=== PATIENT | male | born 1965 | race Caucasian/White ===

== ENCOUNTER 2020-08-12 14:34 | Outpatient (CLI) | payer SELFPAY | END 2020-08-12 14:35 | disposition critical access hospital (66) | LOC: EMS 14:34 | PROVIDERS: ATTEND Surgery | DX: R40.4 Transient alteration of awareness (principal); R06.00 Dyspnea, unspecified | CPT/HCPCS: A0425; A0433 ==

== ENCOUNTER 2020-08-12 14:46 | Inpatient (IN) | payer SELFPAY ==
[2020-08-12 15:09] LABS: BASOPHILS % (AUTO) 0.2 %; HGB - HEMOGLOBIN 13.9 g/dL (14.0-18.0); LYMPHOCYTES # (AUTO) 1.2 10^3/uL (1.5-3.5); LYMPHOCYTES % (AUTO) 10.6 %; MEAN CORPUSCULAR HEMOGLOBIN 29.3 pg (27.0-31.0); MEAN CORPUSCULAR HGB CONC 30.4 g/dL (32.0-36.0); MEAN CORPUSCULAR VOLUME 96.4 fL (80.0-94.0); MEAN PLATELET VOLUME 10.2 fL (7.4-11.4); MONOCYTES # (AUTO) 0.7 10^3/uL (0.0-1.0); MONOCYTES % (AUTO) 6.3 %; NEUTROPHILS # (AUTO) 8.7 10^3/uL (1.5-6.6); NEUTROPHILS % (AUTO) 78.9 %; PLT - PLATELET COUNT 243 10^3/uL (130-450); RED BLOOD COUNT 4.74 10^6/uL (4.70-6.10); RED CELL DISTRIBUTION WIDTH 14.5 % (12.0-15.0)
--- NOTE | 2020-08-12 15:10 | ED Physician Documentation ---
History of Present Illness - Stated complaint Stated Complaint: CPR - History obtained from History obtained from: EMS - History of Present Illness Timing: Today - Additonal information Additional information: 55-year-old male tested positive for Covid approximately 5 days ago. Started having difficulty breathing over the past 2 to 3 days. Worsening difficulty breathing today. EMS was called, patient apparently had O2 sats in the 40s when EMS arrived. They were unable to bring his oxygen saturation up with a nonrebreather. The patient apparently coded for a few seconds to minutes, sounds like it was very brief. Given epinephrine and had ROSC. Patient was brought in for further evaluation. Intubated in the field. No further medical history is available. Unknown medications he takes if any were anything about his past medical history. Review of Systems Unable to obtain: Intubated PD PAST MEDICAL HISTORY - Past Medical History Other Past Medical History: unknown - Past Surgical History Other past surgical history: unknown - Living Situation Living Arrangement: reports: At home PD ED PE NORMAL - Vitals Vital signs reviewed: Yes - General General: Other (intubated, sedated) - HEENT HEENT: Moist mucous membranes - Cardiac Cardiac: Other (tachycardic) - Respiratory Respiratory: Other (crackles and diminished BS bilaterally.) - Abdomen Abdomen: Other (mild distention) - Derm Derm: Other (cool, moist) - Extremities Extremities: No edema - Neuro Neuro: Other (unresponsive) Results - Vitals Vitals: Vital Signs - 24 hr 08/12/20 08/12/20 08/12/20 14:45 15:10 15:25 Temperature 39.9 C H Heart Rate 130 H 135 H 125 H Respiratory 36 H 24 Rate Blood Pressure 203/118 H 158/106 H 108/77 O2 Saturation 60 L 62 L 08/12/20 08/12/20 08/12/20 15:26 15:30 15:32 Temperature Heart Rate 130 H 130 H Respiratory 24 24 Rate Blood Pressure 102/70 102/76 O2 Saturation 64 L 65 L 65 L Oxygen O2 Source Mechanical ventilator - EKG (time done) 1540 Rate: Rate (enter#) (115) Rhythm: Sinus tachycardia Mission: Normal Intervals: Normal SC QRS: Normal Ischemia: Normal ST segments - Labs Labs: Laboratory Tests 08/12/20 08/12/20 08/12/20 15:00 15:00 15:00 WBC 11.0 H RBC 4.74 Hgb 13.9 L Hct 45.7 MCV 96.4 H MCH 29.3 MCHC 30.4 L RDW 14.5 Plt Count 243 MPV 10.2 Neut # (Auto) 8.7 H Lymph # (Auto) 1.2 L [place] # (Auto) 0.7 Eos # (Auto) 0.0 Baso # (Auto) 0.0 Absolute Nucleated RBC 0.02 Nucleated RBC % 0.2 D-Dimer Bld Gas Analysis Time 1517 Sample Site RIGHT RADIAL ABG pH 7.18 L* ABG pCO2 60 H* ABG pO2 38 L* ABG HCO3 21.6 L ABG Total CO2 23.5 ABG O2 Saturation 61 L* ABG Base Excess -7.5 L Ander Test POSITIVE Respiration Rate 24 O2 Delivery Device VENTILATOR Vent Mode ASSIST/CONTROL FiO2 1.00 Tidal Volume 500 PEEP 5 Sodium 137 Potassium 5.1 H Chloride 98 L Carbon Dioxide 23 Anion Gap 16.0 H BUN 37 H Creatinine 2.5 H Estimated GFR (MDRD) 27 L Glucose 196 H Calcium 7.4 L Total Bilirubin 0.8 AST 2276 H ALT 1369 H Alkaline Phosphatase 70 Total Protein 6.7 Albumin 2.8 L Globulin 3.9 Albumin/Globulin Ratio 0.7 L 08/12/20 15:00 WBC RBC Hgb Hct MCV MCH MCHC RDW Plt Count MPV Neut # (Auto) Lymph # (Auto) [place] # (Auto) Eos # (Auto) Baso # (Auto) Absolute Nucleated RBC Nucleated RBC % D-Dimer > 1050.0 H Bld Gas Analysis Time Sample Site ABG pH ABG pCO2 ABG pO2 ABG HCO3 ABG Total CO2 ABG O2 Saturation ABG Base Excess Ander Test Respiration Rate O2 Delivery Device Vent Mode FiO2 Tidal Volume PEEP Sodium Potassium Chloride Carbon Dioxide Anion Gap BUN Creatinine Estimated GFR (MDRD) Glucose Calcium Total Bilirubin AST ALT Alkaline Phosphatase Total Protein Albumin Globulin Albumin/Globulin Ratio - Rads (name of study) cxr Radiology: Prelim report reviewed, EMP read contemporaneously, See rad report (E xtensive patchy airspace opacity bilaterally. Findings in keeping with COVID- 19.) PD MEDICAL DECISION MAKING - ED course Complexity details: reviewed results, re-evaluated patient, considered differential, d/w communication consultant ED course: 55-year-old male with COVID-19. Respiratory failure. Liver failure, renal failure, multisystem organ failure. Maintained on a ventilator with increasing PEEP. Given dexamethasone 6 mg IV. Discussed the case with Dr. Woodard, hospitalist who accepts for ICU admission. Also discussed the case with Dr. Smith, account technician at [facility] in [place]. He recommends several things, the first being increase PEEP, he states most of these patients do well around 12-14, can go up as high as 18. He also recommends obtaining the D-dimer and giving dexamethasone 6 mg IV daily. If the D-dimer is low, anticoagulation at 0.5 mix per kg divided twice daily. Recommends consideration to CT angiogram, echocardiogram for possible PE. Recommends prone positioning if this can be done in the ICU. Also recommends remdesivir if no liver or kidney failure. Discussed with Yong Delaney CRNA who will see the patient in the ICU to assist with proning as well as central line access. Patient has a poor prognosis at the time of admission Central line was not placed in the emergency department due to the small room the patient was in and will be easier to be placed in the ICU as the ED room is not large enough for the ventilator and ultrasound. 2 peripheral lines used in the ED. - Critical Care Time(min): 60 Time Includes: Direct patient care, Review records, Reassess patient, Document care, Coordinate care, Medical consult, See progress note Data interpretation: See progress note Procedures included in critical care time: See progress note Procedures excluded from critical care time: See progress note Departure - Departure Disposition: 66 [facility] DC/Xfer Clinical Impression: COVID-19 Respiratory failure Qualifiers: Chronicity: acute Respiratory failure complication: hypoxia and hypercapnia Qualified Code(s): J96.01 - Acute respiratory failure with hypoxia Condition: Critical Discharge Date/Time: 08/12/20 16:47
[2020-08-12 15:22] LABS: ABG BASE EXCESS -7.5 mmol/L (-2.0-3.0); ABG HCO3 21.6 mmol/L (22.0-26.0); ABG TCO2 23.5 MMOL/L (21.0-29.0); ALLEN TEST POSITIVE
[2020-08-12 15:24] LABS: ALBUMIN 2.8 g/dL (3.2-5.5); ALBUMIN/GLOBULIN RATIO 0.7 (1.0-2.2); BILIRUBIN,TOTAL 0.8 mg/dL (0.2-1.0); CALCIUM 7.4 mg/dL (8.5-10.3); CREATININE 2.5 mg/dL (0.6-1.2); TOTAL PROTEIN 6.7 g/dL (6.7-8.2)
[2020-08-12 15:26] LABS: ABG PCO2 60 mmHg (34-45); ABG PH 7.18 (7.35-7.45); ABG PO2 38 mmHg (80-100)
[2020-08-12 15:27] LABS: ABG OXYGEN SATURATION 61 % (94-98)
[2020-08-12] MEDS ORDERED: DEXAMETHASONE 10 MG/ML VIAL IVP STA (15:32)
[2020-08-12] MEDS ORDERED: ONDANSETRON 4 MG/2 ML VIAL IVP PRN (15:34)
[2020-08-12] MEDS ORDERED: ALBUTEROL NEB 2.5 MG/3 ML INH PRN (15:34)
[2020-08-12] MEDS ORDERED: MORPHINE 2 MG/ML CARPUJECT IVP PRN (15:34)
[2020-08-12] MEDS ORDERED: [UNRECOGNIZED DRUG - OTHER] IV SCH (15:45)
[2020-08-12] MEDS ORDERED: SODIUM CHLORIDE 0.9% IV SCH (15:45)
[2020-08-12] MEDS ORDERED: KETAMINE 500 MG/10 ML VIAL IVP STA (15:49)
[2020-08-12] MEDS ORDERED: SODIUM CHLORIDE 0.9% 1,000 ML IV STA (15:54)
--- NOTE | 2020-08-12 15:57 | XRAY Report ---
PROCEDURE: Chest 1 View X-Ray INDICATIONS: CPR, intubation TECHNIQUE: One view of the chest was acquired. COMPARISON: None. FINDINGS: Surgical changes and devices: Endotracheal tube in the trachea. Enteric tube coursing in the stomach. External defibrillator pads. Lungs and pleura: No pleural effusions or pneumothorax. Extensive patchy airspace opacity bilaterall y. Mediastinum: Mediastinal contours appear normal. Heart size is normal. Bones and chest wall: No suspicious bony lesions. Overlying soft tissues appear unremarkable. IMPRESSION: Tubes and lines project in the expected location. Extensive patchy airspace opacity bilaterally. Findings in keeping with COVID-19 infection. Reviewed by: Raza Ramirez MD on 08/12/2020 2:56 PM [facility] Approved by: Raza Ramirez MD on 08/12/2020 2:56 PM [facility] Station ID: [id number]
[2020-08-12] MEDS ORDERED: PROPOFOL 500 MG/50 ML 0 MG/0 ML VIAL ONE (15:59)
--- NOTE | 2020-08-12 16:06 | HISTORY & PHYSICAL EXAMINATION ---
Chief Complaint - Chief Complaint Chief Complaint: Respiratory arrest History of Present Illness - Admitted From Admitted From:: Home via EMS - History Obtained From Records Reviewed: [facility] History obtained from: Apurva Nicholas, son Dariusz, and Dr. Fine Exam Limitations: Patient is intubated, unconscious - History of Present Illness HPI Comment/Other: He is a 55-year-old obese white male who is been unemployed because of the Covid epidemic. He is an solutions executive cloud sales at [email or web address] and was looking forward to starting work in [employer] soon. He has been staying at home. His stepson describes him as being careful. He started feeling ill July 31. As far as his stepson knows, no one around him is sick. The patient has progressed from flulike illness of fever, myalgias, sore throat, runny nose to lethargy, cough, shortness of breath. On August 04 he went out to go buy a freezer and some tools. He was coughing, having hot flashes and cold flashes. And feeling miserable. On Friday the his and adolfoon went to go get tested since they were starting to feel flulike illnesses and they were Covid positive. By August 08 the patient stated he was "feeling better". Up till then, his family had been urging him to please see a doctor. To go to the urgent care center or the emergency room but the patient did not want to go. He felt like he was on the mend. But he continued to be lethargic, sleepy. Did not have much energy. By Friday he really did not have an appetite and was not eating very much. He was sleeping a lot. He was so miserable last night that he just went to bed early. This morning, the family said that he was still sleeping. He had been having such a rough week of it that they left him alone in bed. This afternoon, they went to go check on him because he still has not gotten out of bed and they noticed that he was having white froth come out of his mouth. He was also unresponsive. No matter how much they shook his shoulder or tried to pull on his arms, he was not responding to them so they called EMS. EMS reports unresponsive man, sats in 40s, almost asystole but responded immediately to oxygen, epinephrine and intubation. He received vec with EMS. Initially he was hypertensive in the emergency room and is now hypotensive on the ventilator with a PEEP of 14. Ketamine given. His initial blood gas shows a pH of 7.18, PCO2 60, PO2 38. Bicarb 21.6. Base excess -7.5. This is on the ventilator with a rate of 24, assist control, 100% FiO2 with a tidal volume of 500 and a PEEP of 5. White cell count is 11,000. Hemoglobin 13.9. I am now placing the patient in the ICU. History is obtained from his stepson Cristopher ([phone]). His fiance does not speak [place]. She does not have designated power of urology teacher. He has 3 children from his first marriage and one lives in [facility]. Meggan is his daughter in [place] ([phone]). Son is Dariusz ([phone]). Dariusz has agreed to be the point of contact for his family to disseminate information to them. He is also to be the designated power of urology teacher for the family. History - Past Medical History Cardiovascular: reports: None Respiratory: reports: Asthma (As far his status son Dariusz notes, the patient does not have a primary care provider. Cristopher also states that he does not remember his stepfather seen a doctor.) Neuro: reports: None Endocrine/Autoimmune: reports: None GI: reports: None : reports: None HEENT: reports: None Psych: reports: None Musculoskeletal: reports: Chronic back pain (Previous history of back surgery) Derm: reports: None Other Past Medical History: unknown - Past Surgical History Other past surgical history: unknown - Family & Social History Family History Comment/Other: He is adopted. So he did not know his natural parents. He did come in contact with 1 brother who lives in [place] and is healthy as far as the adolfoon knows. He has 2 stepbrothers in [place]. He has 2 children from his first marriage and they are healthy. Living arrangement: At home Living Situation: With spouse/s.o. Social History Notes: He is from [place]. He lives in his own home here in [place] with his girlfriend/fianc and her son. He does not smoke Now but he used to in the past. Cannot remember when he stop smoking. It was years ago. The family describes him as a rare alcohol drinker. He is an solutions executive cloud sales. He has no history of cocaine, heroin, LSD, methamphetamines.He does have a child who lives in [place] and another child who lives in [place] from his first marriage. His fiance does not have power of urology teacher. - Substance History Use: Uses substance without health or social issues: NONE Abuse: Recurrent use of substance despite neg consequences: NONE Dependence: Experiences withdrawal or developed tolerances: NONE - POLST Patient has POLST: No POLST Status: Full Code Review of Systems - Other Findings Other Findings: Other than the review of systems and history of present illness from his family, we are unable to obtain other detailed review of systems from the patient Prior Level of Functionality: Completely independent with activities of daily living. He drives a car. Helps around the house. Cooks. He does not use any durable medical equipment. Exam - Vital Signs Reviewed Vital Signs: Yes Vital Signs: Vital Signs x48h Temp Pulse Resp BP Pulse Ox 08/12/20 15:41 125 H 24 93/70 64 L 08/12/20 15:32 130 H 18 102/76 99 08/12/20 15:26 64 L 08/12/20 15:25 125 H 24 108/77 62 L 08/12/20 15:10 39.9 C H 135 H 158/106 H 08/12/20 14:45 130 H 36 H 203/118 H 60 L - Physical Exam General Appearance: positive: Other (He is intubated, has only received vecuronium and ketamine x1. Other than that unresponsive.Short statured, morbidly obese, unshaven) Eyes Bilateral: positive: Other (Pupils are pinpoint, unresponsive, sclera without icterus) ENT: positive: Dry mucous membranes Neck: positive: Other (Neck is very thick, unable to assess for JVD. It appears supple. No masses.) Respiratory: positive: Rales (Diffusely. Intubated, completely vent dependent) Cardiovascular: positive: Regular rate & rhythm, Tachycardia Peripheral Pulses: positive: 0 Abdomen: positive: No distention, Other (Hypoactive bowel sounds, large abdomin al pannus really prohibits from assessing for any organomegaly) Skin: positive: Dry, Pallor, Other (On the left lateral calf, he has a large flat camilla. Brown and at least 10 x 5 cm) Extremities: positive: No pedal edema Neurologic/Psychiatric: positive: Other (Unresponsive to voice or pain. Right now there is no other drugs on board before I give him sedatives. No spontaneous moves. Toes upgoing with Babinski check) Conclusion/Plan - Problem List (1) Respiratory arrest Conclusion/Plan: This was a witnessed arrest in the field. EMS was able to successfully resuscitate him quickly with intubation and 1 dose of epi. No chest com pressions were described. Antecedent event is gradually worsening viral illness and he is Covid positive in the emergency room. At this time we will place him in the ICU. I have contacted anesthesia to place a central line. We will also ask for a art line. (2) Acute respiratory failure Conclusion/Plan: Due to asthma and COVID-19 infection. Will treat underlying illnesses. At this time he is intubated. Tidal volume 500. Assist control. FiO2 100%. Rate 24. PEEP of 5. Dr. Fine from the emergency room did discuss the case with ICU from [facility]. Trying keep the PEEP at 14. Try and prone the patient if you can. Qualifiers: Respiratory failure complication: hypoxia Qualified Code(s): J96.01 - Acute respiratory failure with hypoxia (3) Pneumonia due to COVID-19 virus Conclusion/Plan: Treatment standards have changed since the beginning of the epidemic to now. At this time with the data available To us, I had thought we would be giving him remdesivir. However he does not meet criteria Per pharmacy. We will be giving dexamethasone 6 mg in the ER and Dexamethasone is on a daily basis for 4 more doses. We will monitor D-dimer. Once I get the D-dimer level I will either have him on 0.5 mg/kg twice a day. Or 1 mg/kg twice a day of Lovenox. (4) Acute kidney injury Conclusion/Plan: Not clear if this patient has had prolonged shock at home, or if this is simple dehydration from lack of p.o. intake over the last few days. Plan: Aggressive IV fluids for resuscitation. Repeat labs in the next 6 hours. Check labs daily. Avoid nephrotoxic agents. Check renal ultrasound. (5) Acute hepatic failure Conclusion/Plan: Unclear if this is due to alcohol abuse. Bellanc state that he is not an alcohol abuser. Plan: Acute hepatitis panel Ultrasound of liver Follow labs daily Qualifiers: Hepatic coma status: without hepatic coma Qualified Code(s): K72.00 - Acute and subacute hepatic failure without coma (6) Asthma Conclusion/Plan: This may be his underlying risk factors for Covid pneumonia. He is already getting dexamethasone once a day. We will make sure he gets bronchodilators, short acting, as needed. Qualifiers: Asthma severity: severe (7) Morbid obesity Conclusion/Plan: BMI is 39.5. This with me another independent risk factor for his Covid infection. I will ask nutrition services to see him in consultation to see if we should be starting tube feeds to maintain adequate nutrition status and the patient is critically ill. (8) Hyperkalemia Conclusion/Plan: Once he is completed his steroids, line placements, fluid resuscitation, I will repeat potassium. If still hyperkalemic will give dextrose and IV push insulin - Lab Results Lab results reviewed: Yes Fish Bones: 08/12/20 15:00 08/12/20 15:00 - Diagnostic Imaging Results Diagnostic Imaging Results: positive: Final report reviewed Diagnostic Imaging Results Comments: Extensive patchy airspace opacity bilaterally. Findings in keeping with COVID- 19 infection - EKG Results EKG Interpreted Independently: No Core Measures - Anticipated LOS I expect patient to be DC'd or transferred within 96 hours.: Yes - DVT/VTE - Prophylaxis VTE/DVT Device ordered at admit?: Yes
[2020-08-12] MEDS ORDERED: SODIUM CHLORIDE 0.9% 2,000 ML IV STA (16:44)
[2020-08-12] MEDS: LACTATED RINGERS 1,000 ML IV SCH (17:19)
--- NOTE | 2020-08-12 17:37 | ANESTHESIA PROCEDURE NOTE ---
Anesth Central Line Template - Central Line Central Line Preparation: Unable to obtain consent (emergent), Time out compl eted, Ultrasound used, Sterile prep and drape Central line location: Right IJ Central line type: Triple lumen Central line catheter tip site resides: Superior vena cava (SVC) Central line aftercare: Chlorhexidine disc placed, Secured, Placement confirmed, No pneumothorax, No complications, Bundle checklist complete, Pt tolerated well
--- NOTE | 2020-08-12 18:14 | XRAY Report ---
PROCEDURE: Chest for Line Placement INDICATIONS: New CVC TECHNIQUE: One view of the chest was acquired. COMPARISON: CXR earlier today. FINDINGS: Surgical changes and devices: Endotracheal tube in the mid trachea. Enteric tube coursing into the st omach. Right IJ central venous line with the tip at the cavoatrial junction, new. Lungs and pleura: No pleural effusions or pneumothorax. Extensive bilateral patchy airspace opacity, unchanged. Mediastinum: Mediastinal contours appear normal. Heart size is normal. Bones and chest wall: No suspicious bony lesions. Overlying soft tissues appear unremarkable. IMPRESSION: Right IJ central venous line with the tip at the cavoatrial junction in the expected position. No pne umothorax. Extensive bilateral patchy airspace opacity. Reviewed by: Raza Ramirez MD on 08/12/2020 5:13 PM [facility] Approved by: Raza Ramirez MD on 08/12/2020 5:13 PM [facility] Station ID: [id number]
[2020-08-12] MEDS ORDERED: cefTRIAXone 2 GM in SODIUM CHLORIDE 0.9% MINIBAG 100 ML IV SCH (19:40)
[2020-08-12] MEDS ORDERED: ACETAMINOPHEN 1,000 MG/100 ML 100 ML IV PRN (19:43)
[2020-08-12] MEDS: AZITHROMYCIN INJ 500 MG in SODIUM CHLORIDE 0.9% 250 ML IV SCH (20:10)
[2020-08-12 20:19] LABS: ABG BASE EXCESS -4.9 mmol/L (-2.0-3.0); ABG HCO3 19.8 mmol/L (22.0-26.0); ABG OXYGEN SATURATION 98 % (94-98); ABG PCO2 36 mmHg (34-45); ABG PH 7.36 (7.35-7.45); ABG PO2 127 mmHg (80-100); ABG TCO2 20.8 MMOL/L (21.0-29.0)
[2020-08-12] MEDS ORDERED: ENOXAPARIN 100 MG/ML SYRINGE SUBQ SCH (21:00)
[2020-08-12 22:16] LABS: ALBUMIN 2.6 g/dL (3.2-5.5); ALBUMIN/GLOBULIN RATIO 0.7 (1.0-2.2); BILIRUBIN,TOTAL 0.8 mg/dL (0.2-1.0); CALCIUM 6.6 mg/dL (8.5-10.3); CREATININE 3.2 mg/dL (0.6-1.2); TOTAL PROTEIN 6.2 g/dL (6.7-8.2)
[2020-08-12] MEDS ORDERED: CALCIUM GLUCONATE 2,000 MG in SODIUM CHLORIDE 0.9% 100ML 100 ML IV ONE (22:29)
[2020-08-12] MEDS: SODIUM CHLORIDE FLUSH 0.9% 10 ML SYRINGE IVP SCH (23:11)
[2020-08-12] MEDS: fentaNYL 2,500 MCG in SODIUM CHLORIDE 0.9% 200 ML IV SCH (23:22)
[2020-08-12 23:26] LABS: BILIRUBIN,URINE NEGATIVE (NEGATIVE); GLUCOSE, URINE (UA) NEGATIVE (NEGATIVE); KETONES,URINE (UA) NEGATIVE (NEGATIVE); LEUKOCYTE ESTERASE, URINE NEGATIVE (NEGATIVE); NITRITE,URINE NEGATIVE (NEGATIVE); OCCULT BLOOD,URINE LARGE (NEGATIVE); PROTEIN,URINE >=300 mg/dL (NEGATIVE); UROBILINOGEN,URINE 0.2 (NORMAL) E.U./dL (NORMAL)
[2020-08-12 23:27] LABS: CLARITY,URINE CLEAR (CLEAR)
[2020-08-12 23:36] LABS: BACTERIA,URINE Rare /HPF (None Seen); SQUAMOUS EPITHELIAL CELL,UR NONE SEEN (<= Few)
[2020-08-13] MEDS: LACTATED RINGERS 1,000 ML IV SCH ×3 (03:49→21:21)
[2020-08-13] MEDS: SODIUM CHLORIDE FLUSH 0.9% 10 ML SYRINGE IVP SCH ×3 (03:50→18:24)
[2020-08-13 05:40] LABS: INR 1.5 (0.8-1.2); PT - PROTHROMBIN TIME 16.5 secs (9.9-12.6)
[2020-08-13 05:46] LABS: D-DIMER > 1050.0 ng/mL (200.0-255.0)
[2020-08-13 06:12] LABS: ALBUMIN 2.7 g/dL (3.2-5.5); ALBUMIN/GLOBULIN RATIO 0.7 (1.0-2.2); BILIRUBIN,DIRECT 0.2 mg/dL (0.1-0.5); BILIRUBIN,TOTAL 0.6 mg/dL (0.2-1.0); CALCIUM 7.3 mg/dL (8.5-10.3); CREATININE 4.2 mg/dL (0.6-1.2); MAGNESIUM 2.8 mg/dL (1.7-2.8); PHOSPHORUS 4.5 mg/dL (2.5-4.6); TOTAL PROTEIN 6.5 g/dL (6.7-8.2)
[2020-08-13 06:49] LABS: ABG BASE EXCESS -5.3 mmol/L (-2.0-3.0); ABG HCO3 19.7 mmol/L (22.0-26.0); ABG OXYGEN SATURATION 97 % (94-98); ABG PCO2 37 mmHg (34-45); ABG PH 7.35 (7.35-7.45); ABG PO2 93 mmHg (80-100); ABG TCO2 20.9 MMOL/L (21.0-29.0); ALLEN TEST POSITIVE
[2020-08-13 07:31] LABS: BASOPHILS % (AUTO) 0.2 %; HGB - HEMOGLOBIN 13.2 g/dL (14.0-18.0); LYMPHOCYTES % (AUTO) 7.9 %; MEAN CORPUSCULAR HEMOGLOBIN 29.3 pg (27.0-31.0); MEAN CORPUSCULAR HGB CONC 31.4 g/dL (32.0-36.0); MEAN CORPUSCULAR VOLUME 93.1 fL (80.0-94.0); MEAN PLATELET VOLUME 11.1 fL (7.4-11.4); MONOCYTES # (AUTO) 0.6 10^3/uL (0.0-1.0); MONOCYTES % (AUTO) 4.6 %; NEUTROPHILS # (AUTO) 11.3 10^3/uL (1.5-6.6); PLT - PLATELET COUNT 225 10^3/uL (130-450); RED BLOOD COUNT 4.51 10^6/uL (4.70-6.10); RED CELL DISTRIBUTION WIDTH 14.6 % (12.0-15.0); WHITE BLOOD COUNT 13.2 x10^3/uL (4.8-10.8)
[2020-08-13] MEDS ORDERED: SODIUM CHLORIDE 0.9% MINIBAG 100 ML IV ONE (08:01)
[2020-08-13] MEDS: AZITHROMYCIN INJ 500 MG in SODIUM CHLORIDE 0.9% 250 ML IV SCH (08:46)
[2020-08-13] MEDS: DEXAMETHASONE 4 MG/ML VIAL IVP SCH (08:46)
[2020-08-13] MEDS ORDERED: ALBUTEROL 1 PUFF INH STA (08:54)
--- NOTE | 2020-08-13 09:38 | XRAY Report ---
PROCEDURE: Chest 1 View X-Ray INDICATIONS: FU PNEUMONIA, INTUBATED TECHNIQUE: One view of the chest was acquired. COMPARISON: CXRs 08/12/2020. FINDINGS: Surgical changes and devices: Endotracheal tube in the mid trachea. Enteric tube coursing down the es ophagus. Right IJ central venous line with the tip at the cavoatrial junction. External defibrillator pads. Lungs and pleura: No pleural effusions or pneumothorax. Extensive bilateral airspace opacity is stab le to slightly worsened. Mediastinum: Mediastinal contours appear unchanged. Heart size is partially obscured. Bones and chest wall: No suspicious bony lesions. Overlying soft tissues appear unremarkable. IMPRESSION: 1. Extensive bilateral airspace opacity is stable to slightly worsened. 2. Tubes and lines project in the expected locations. Reviewed by: Raza Ramirez MD on 08/13/2020 8:37 AM [facility] Approved by: Raza Ramirez MD on 08/13/2020 8:37 AM [facility] Station ID: [id number]
[2020-08-13] MEDS: cefTRIAXone 2 GM in SODIUM CHLORIDE 0.9% MINIBAG 100 ML IV SCH (10:05)
--- NOTE | 2020-08-13 10:07 | PROVIDER PROGRESS NOTE ---
Subjective - Prog Note Date Prog Note Date: 08/13/20 Prog Note Time: 10:00 Current Medications - Current Medications Current Medications: Active Medications Generic Name Dose Route Start Last Admin Trade Name Freq PRN Reason Stop Dose Admin Albuterol 2.5 mg 08/12/20 15:34 Albuterol Neb 2.5 Mg/3 Ml INH Q4HR PRN Wheezing Chlorhexidine Gluconate 15 ml 08/13/20 10:00 Chlorhexidine Gluconate 15 Ml Udc PO BID CADY Dexamethasone 6 mg 08/13/20 09:00 08/13/20 08:46 Dexamethasone 4 Mg/Ml Vial IVP 6 mg DAILY CADY Administration Diltiazem HCl 5 mg 08/13/20 09:00 Diltiazem Inj 5 Mg/Ml Vial IVP Q6H CADY Lactated Ringer's 1,000 mls @ 100 mls/hr 08/12/20 16:00 08/13/20 03:49 Lr IV 100 mls/hr .Q10H CADY Administration Norepinephrine Bitartrate 8 mg 250 mls @ 15 mls/hr 08/12/20 17:00 08/13/20 00:30 / Dextrose IV 3 mcg/min .[id number] CADY 5.625 mls/hr Titration Protocol 8 MCG/MIN Azithromycin 500 mg/ Sodium 250 mls @ 250 mls/hr 08/12/20 19:40 08/13/20 08:46 Chloride IV 08/14/20 09:59 250 mls/hr DAILY CADY Administration Acetaminophen 100 mls @ 400 mls/hr 08/12/20 19:43 08/12/20 20:25 Ofirmev IV Infused Q6HR PRN Infusion Pain or Fever > 38C (100.4F) Fentanyl 2,500 mcg/ Sodium 250 mls @ 11.793 mls/hr 08/12/20 21:00 08/12/20 23:22 Chloride IV Not Given .[id number] CADY Protocol 1 MCG/KG/HR Ceftriaxone Sodium 2 gm/ 100 mls @ 200 mls/hr 08/13/20 10:00 Sodium Chloride IV 08/16/20 09:29 DAILY CADY Morphine Sulfate 2 mg 08/12/20 15:34 Morphine 2 Mg/Ml Carpuject IVP Q2HR PRN Pain 8 to 10 Multi-Ingred Cream/Lotion/Oil/Oint 1 applic 08/13/20 09:09 Mineral Oil/Petrolat Ophth Oint EACHEYE PRN PRN Dry Eye Ondansetron HCl 4 mg 08/12/20 15:34 Ondansetron 4 Mg/2 Ml Vial IVP Q6HR PRN Nausea / Vomiting Pantoprazole Sodium 40 mg 08/13/20 10:00 Pantoprazole 40 Mg Vial IVP QDAC CADY Sodium Chloride 10 ml 08/12/20 17:00 08/13/20 08:48 Sodium Chloride Flush 0.9% 10 Ml Syringe IVP 10 ml 0100,0900,1700 CADY Administration Sodium Chloride 10 ml 08/12/20 15:34 Sodium Chloride Flush 0.9% 10 Ml Syringe IVP PRN PRN NEEDED PER PROVIDER ORDERS Objective - Vital Signs/Intake & Output Reviewed Vital Signs: Yes Vital Signs: Vital Signs Temp Pulse Pulse Resp BP BP Pulse Ox 08/13/20 09:45 98 31 H 08/13/20 09:31 100 08/13/20 09:30 97 29 H 08/13/20 09:15 94 24 08/13/20 09:00 94 27 H 08/13/20 08:45 91 33 H 08/13/20 08:30 89 28 H 08/13/20 08:15 93 27 H 08/13/20 08:06 37.5 C 91 26 H 144/105 H 92 08/13/20 08:01 91 27 H 08/13/20 08:00 92 27 H 144/105 H 08/13/20 07:59 92 27 H 08/13/20 07:46 94 31 H 08/13/20 07:45 94 32 H 153/111 H 08/13/20 07:44 90 31 H 08/13/20 07:31 91 25 H 08/13/20 07:30 91 25 H 144/104 H 08/13/20 07:29 90 25 H 08/13/20 07:16 88 24 08/13/20 07:15 90 24 142/104 H 08/13/20 07:14 91 25 H 08/13/20 07:01 90 26 H 08/13/20 07:00 89 27 H 140/107 H 08/13/20 06:59 89 24 08/13/20 06:48 90 24 136/89 H 92 08/13/20 06:46 90 25 H 08/13/20 06:45 90 25 H 138/105 H 08/13/20 06:44 91 26 H 08/13/20 06:31 91 25 H 08/13/20 06:30 91 25 H 148/106 H 08/13/20 06:29 91 26 H 08/13/20 06:16 95 25 H 08/13/20 06:15 93 28 H 146/111 H 08/13/20 06:14 93 28 H 08/13/20 06:01 88 24 Intake & Output: Intake & Output 08/10/20 08/11/20 08/12/20 08/13/20 23:59 23:59 23:59 23:59 Intake Total 2897.313 1159.375 Output Total 980 295 Balance 1917.313 864.375 - Objective General Appearance: positive: Other (unable to assess, patient is intubated and not arousable (RASS -5)) Eyes Bilateral: positive: Normal inspection, PERRL, No lid inflammation, Conjunctivae nml, No scleral icterus ENT: positive: ENT inspection nml. negative: Dry mucous membranes Neck: positive: Nml inspection, Thyroid nml, No JVD, Trachea midline. negative: Thyromegaly, Carotid bruit, Tracheal deviation Respiratory: positive: Other (Patient is intubate, vent settings: Volume control, 100% FiO2, PEEP 14, RR 24. Lung sounds are clear/slightly dim.) Cardiovascular: positive: Regular rate & rhythm, No murmur, No gallop, Other (He occasionally will get tachycardic with turns, stimulation.). negative: JVD present, Systolic murmur, Diastolic murmur, Gallop/S3, Gallop/S4 Peripheral Pulses: 1+ Radial (L), 2+ Radial (R), 2+ Dorsalis pedis (R), 2+ Dorsalis pedis (L), 2+ Posterior tibialis (R), 2+ Posterior tibialis (L) Abdomen: positive: Nml bowel sounds, No distention, Other (unable to assess for tenderness (patient not responsive). No grimacing to palpitation to abdomen.). negative: Bruit Skin: positive: Color nml, No rash, Warm, Dry, Other (All extremities are warm except for his left upper arm and hand. Capillary refill is >3 seconds and is cool to touch. Pulses are palpable and dopplerable.) Extremities: positive: Nml appearance, No pedal edema Neurologic/Psychiatric: positive: Other (unable to assess, patient is vented with RASS -5 to -4. Withdrawls to pain on left arm.) - Lab Results Fish Bones: 08/13/20 05:53 08/13/20 11:48 Other Labs: Lab Results x24hrs 08/13/20 08/13/20 08/13/20 Range/Units 06:40 05:53 05:10 WBC 13.2 H (4.8-10.8) x10^3/uL RBC 4.51 L (4.70-6.10) 10^6/uL Hgb 13.2 L (14.0-18.0) g/dL Hct 42.0 (42.0-52.0) % MCV 93.1 (80.0-94.0) fL MCH 29.3 (27.0-31.0) pg MCHC 31.4 L (32.0-36.0) g/dL RDW 14.6 (12.0-15.0) % Plt Count 225 (130-450) 10^3/uL MPV 11.1 (7.4-11.4) fL Neut # (Auto) 11.3 H (1.5-6.6) 10^3/uL Lymph # (Auto) 1.0 L (1.5-3.5) 10^3/uL [place] # (Auto) 0.6 (0.0-1.0) 10^3/uL Eos # (Auto) 0.0 (0.0-0.7) 10^3/uL Baso # (Auto) 0.0 (0.0-0.1) 10^3/uL Absolute Nucleated RBC 0.02 x10^3/uL Nucleated RBC % 0.2 /100WBC PT 16.5 H (9.9-12.6) secs INR 1.5 H (0.8-1.2) D-Dimer > 1050.0 H (200.0-255.0) ng/mL Bld Gas Analysis Time 0645 Sample Site A-LINE ABG pH 7.35 (7.35-7.45) ABG pCO2 37 (34-45) mmHg ABG pO2 93 (80-100) mmHg ABG HCO3 19.7 L (22.0-26.0) mmol/L ABG Total CO2 20.9 L (21.0-29.0) MMOL/L ABG O2 Saturation 97 (94-98) % ABG Base Excess -5.3 L (-2.0-3.0) mmol/L Ander Test POSITIVE Respiration Rate 24 b/min O2 Delivery Device Vent Mode ASSIST/CONTROL FiO2 10.00 Tidal Volume 500 mL PEEP 14 cmH2O Sodium (135-145) mmol/L Potassium (3.5-5.0) mmol/L Chloride (101-111) mmol/L Carbon Dioxide (21-32) mmol/L Anion Gap (6-13) BUN (6-20) mg/dL Creatinine (0.6-1.2) mg/dL Estimated GFR (MDRD) (>89) Glucose (70-100) mg/dL Calcium (8.5-10.3) mg/dL Phosphorus (2.5-4.6) mg/dL Magnesium (1.7-2.8) mg/dL Total Bilirubin (0.2-1.0) mg/dL Direct Bilirubin (0.1-0.5) mg/dL AST (10-42) IU/L ALT (10-60) IU/L Alkaline Phosphatase (42-121) IU/L Total Protein (6.7-8.2) g/dL Albumin (3.2-5.5) g/dL Globulin (2.1-4.2) g/dL Albumin/Globulin Ratio (1.0-2.2) Urine Color Urine Clarity (CLEAR) Urine pH (5.0-7.5) PH Ur Specific Dubois (1.002-1.030) Urine Protein (NEGATIVE) mg/dL Urine Glucose (UA) (NEGATIVE) mg/dL Urine Ketones (NEGATIVE) mg/dL Urine Occult Blood (NEGATIVE) Urine Nitrite (NEGATIVE) Urine Bilirubin (NEGATIVE) Urine Urobilinogen (NORMAL) E.U./dL Ur Leukocyte Esterase (NEGATIVE) Urine RBC (0-5) /HPF Urine WBC (0-3) /HPF Ur Squamous Epith Cells (<= Few) Urine Bacteria (None Seen) /HPF Urine Casts /LPF Ur Microscopic Review Urine Culture Comments Nasal Screen MRSA (PCR) (NEGATIVE) 08/13/20 08/12/20 08/12/20 Range/Units 05:10 23:10 21:24 WBC (4.8-10.8) x10^3/uL RBC (4.70-6.10) 10^6/uL Hgb (14.0-18.0) g/dL Hct (42.0-52.0) % MCV (80.0-94.0) fL MCH (27.0-31.0) pg MCHC (32.0-36.0) g/dL RDW (12.0-15.0) % Plt Count (130-450) 10^3/uL MPV (7.4-11.4) fL Neut # (Auto) (1.5-6.6) 10^3/uL Lymph # (Auto) (1.5-3.5) 10^3/uL [place] # (Auto) (0.0-1.0) 10^3/uL Eos # (Auto) (0.0-0.7) 10^3/uL Baso # (Auto) (0.0-0.1) 10^3/uL Absolute Nucleated RBC x10^3/uL Nucleated RBC % /100WBC PT (9.9-12.6) secs INR (0.8-1.2) D-Dimer (200.0-255.0) ng/mL Bld Gas Analysis Time Sample Site ABG pH (7.35-7.45) ABG pCO2 (34-45) mmHg ABG pO2 (80-100) mmHg ABG HCO3 (22.0-26.0) mmol/L ABG Total CO2 (21.0-29.0) MMOL/L ABG O2 Saturation (94-98) % ABG Base Excess (-2.0-3.0) mmol/L Ander Test Respiration Rate b/min O2 Delivery Device Vent Mode FiO2 Tidal Volume mL PEEP cmH2O Sodium 140 136 (135-145) mmol/L Potassium 4.7 4.8 (3.5-5.0) mmol/L Chloride 101 101 (101-111) mmol/L Carbon Dioxide 23 20 L (21-32) mmol/L Anion Gap 16.0 H 15.0 H (6-13) BUN 58 H 47 H (6-20) mg/dL Creatinine 4.2 H 3.2 H (0.6-1.2) mg/dL Estimated GFR (MDRD) 15 L 20 L (>89) Glucose 250 H 260 H (70-100) mg/dL Calcium 7.3 L 6.6 L (8.5-10.3) mg/dL Phosphorus 4.5 (2.5-4.6) mg/dL Magnesium 2.8 (1.7-2.8) mg/dL Total Bilirubin 0.6 0.8 (0.2-1.0) mg/dL Direct Bilirubin 0.2 (0.1-0.5) mg/dL AST 4434 H 4833 H (10-42) IU/L ALT 2004 H 2087 H (10-60) IU/L Alkaline Phosphatase 74 70 (42-121) IU/L Total Protein 6.5 L 6.2 L (6.7-8.2) g/dL Albumin 2.7 L 2.6 L (3.2-5.5) g/dL Globulin 3.8 3.6 (2.1-4.2) g/dL Albumin/Globulin Ratio 0.7 L 0.7 L (1.0-2.2) Urine Color YELLOW Urine Clarity CLEAR (CLEAR) Urine pH 5.0 (5.0-7.5) PH Ur Specific Dubois >=1.030 H (1.002-1.030) Urine Protein >=300 H (NEGATIVE) mg/dL Urine Glucose (UA) NEGATIVE (NEGATIVE) mg/dL Urine Ketones NEGATIVE (NEGATIVE) mg/dL Urine Occult Blood LARGE H (NEGATIVE) Urine Nitrite NEGATIVE (NEGATIVE) Urine Bilirubin NEGATIVE (NEGATIVE) Urine Urobilinogen 0.2 (NORMAL) (NORMAL) E.U./dL Ur Leukocyte Esterase NEGATIVE (NEGATIVE) Urine RBC 6-10 H (0-5) /HPF Urine WBC 0-3 (0-3) /HPF Ur Squamous Epith Cells NONE SEEN (<= Few) Urine Bacteria Rare (None Seen) /HPF Urine Casts 3-5 Hyaline Casts /LPF Ur Microscopic Review INDICATED Urine Culture Comments NOT INDICATED Nasal Screen MRSA (PCR) (NEGATIVE) 08/12/20 08/12/20 08/12/20 Range/Units 20:04 17:30 15:00 WBC (4.8-10.8) x10^3/uL RBC (4.70-6.10) 10^6/uL Hgb (14.0-18.0) g/dL Hct (42.0-52.0) % MCV (80.0-94.0) fL MCH (27.0-31.0) pg MCHC (32.0-36.0) g/dL RDW (12.0-15.0) % Plt Count (130-450) 10^3/uL MPV (7.4-11.4) fL Neut # (Auto) (1.5-6.6) 10^3/uL Lymph # (Auto) (1.5-3.5) 10^3/uL [place] # (Auto) (0.0-1.0) 10^3/uL Eos # (Auto) (0.0-0.7) 10^3/uL Baso # (Auto) (0.0-0.1) 10^3/uL Absolute Nucleated RBC x10^3/uL Nucleated RBC % /100WBC PT (9.9-12.6) secs INR (0.8-1.2) D-Dimer > 1050.0 H (200.0-255.0) ng/mL Bld Gas Analysis Time 2003 Sample Site A-LINE ABG pH 7.36 (7.35-7.45) ABG pCO2 36 (34-45) mmHg ABG pO2 127 H (80-100) mmHg ABG HCO3 19.8 L (22.0-26.0) mmol/L ABG Total CO2 20.8 L (21.0-29.0) MMOL/L ABG O2 Saturation 98 (94-98) % ABG Base Excess -4.9 L (-2.0-3.0) mmol/L Ander Test NOT APPLICABLE Respiration Rate 24 b/min O2 Delivery Device VENTILATOR Vent Mode FiO2 100.00 Tidal Volume 500 mL PEEP 14 cmH2O Sodium (135-145) mmol/L Potassium (3.5-5.0) mmol/L Chloride (101-111) mmol/L Carbon Dioxide (21-32) mmol/L Anion Gap (6-13) BUN (6-20) mg/dL Creatinine (0.6-1.2) mg/dL Estimated GFR (MDRD) (>89) Glucose (70-100) mg/dL Calcium (8.5-10.3) mg/dL Phosphorus (2.5-4.6) mg/dL Magnesium (1.7-2.8) mg/dL Total Bilirubin (0.2-1.0) mg/dL Direct Bilirubin (0.1-0.5) mg/dL AST (10-42) IU/L ALT (10-60) IU/L Alkaline Phosphatase (42-121) IU/L Total Protein (6.7-8.2) g/dL Albumin (3.2-5.5) g/dL Globulin (2.1-4.2) g/dL Albumin/Globulin Ratio (1.0-2.2) Urine Color Urine Clarity (CLEAR) Urine pH (5.0-7.5) PH Ur Specific Dubois (1.002-1.030) Urine Protein (NEGATIVE) mg/dL Urine Glucose (UA) (NEGATIVE) mg/dL Urine Ketones (NEGATIVE) mg/dL Urine Occult Blood (NEGATIVE) Urine Nitrite (NEGATIVE) Urine Bilirubin (NEGATIVE) Urine Urobilinogen (NORMAL) E.U./dL Ur Leukocyte Esterase (NEGATIVE) Urine RBC (0-5) /HPF Urine WBC (0-3) /HPF Ur Squamous Epith Cells (<= Few) Urine Bacteria (None Seen) /HPF Urine Casts /LPF Ur Microscopic Review Urine Culture Comments Nasal Screen MRSA (PCR) NEGATIVE (NEGATIVE) 08/12/20 08/12/20 08/12/20 Range/Units 15:00 15:00 15:00 WBC 11.0 H (4.8-10.8) x10^3/uL RBC 4.74 (4.70-6.10) 10^6/uL Hgb 13.9 L (14.0-18.0) g/dL Hct 45.7 (42.0-52.0) % MCV 96.4 H (80.0-94.0) fL MCH 29.3 (27.0-31.0) pg MCHC 30.4 L (32.0-36.0) g/dL RDW 14.5 (12.0-15.0) % Plt Count 243 (130-450) 10^3/uL MPV 10.2 (7.4-11.4) fL Neut # (Auto) 8.7 H (1.5-6.6) 10^3/uL Lymph # (Auto) 1.2 L (1.5-3.5) 10^3/uL [place] # (Auto) 0.7 (0.0-1.0) 10^3/uL Eos # (Auto) 0.0 (0.0-0.7) 10^3/uL Baso # (Auto) 0.0 (0.0-0.1) 10^3/uL Absolute Nucleated RBC 0.02 x10^3/uL Nucleated RBC % 0.2 /100WBC PT (9.9-12.6) secs INR (0.8-1.2) D-Dimer (200.0-255.0) ng/mL Bld Gas Analysis Time 1517 Sample Site RIGHT RADIAL ABG pH 7.18 L* (7.35-7.45) ABG pCO2 60 H* (34-45) mmHg ABG pO2 38 L* (80-100) mmHg ABG HCO3 21.6 L (22.0-26.0) mmol/L ABG Total CO2 23.5 (21.0-29.0) MMOL/L ABG O2 Saturation 61 L* (94-98) % ABG Base Excess -7.5 L (-2.0-3.0) mmol/L Ander Test POSITIVE Respiration Rate 24 b/min O2 Delivery Device VENTILATOR Vent Mode ASSIST/CONTROL FiO2 1.00 Tidal Volume 500 mL PEEP 5 cmH2O Sodium 137 (135-145) mmol/L Potassium 5.1 H (3.5-5.0) mmol/L Chloride 98 L (101-111) mmol/L Carbon Dioxide 23 (21-32) mmol/L Anion Gap 16.0 H (6-13) BUN 37 H (6-20) mg/dL Creatinine 2.5 H (0.6-1.2) mg/dL Estimated GFR (MDRD) 27 L (>89) Glucose 196 H (70-100) mg/dL Calcium 7.4 L (8.5-10.3) mg/dL Phosphorus (2.5-4.6) mg/dL Magnesium (1.7-2.8) mg/dL Total Bilirubin 0.8 (0.2-1.0) mg/dL Direct Bilirubin (0.1-0.5) mg/dL AST 2276 H (10-42) IU/L ALT 1369 H (10-60) IU/L Alkaline Phosphatase 70 (42-121) IU/L Total Protein 6.7 (6.7-8.2) g/dL Albumin 2.8 L (3.2-5.5) g/dL Globulin 3.9 (2.1-4.2) g/dL Albumin/Globulin Ratio 0.7 L (1.0-2.2) Urine Color Urine Clarity (CLEAR) Urine pH (5.0-7.5) PH Ur Specific Dubois (1.002-1.030) Urine Protein (NEGATIVE) mg/dL Urine Glucose (UA) (NEGATIVE) mg/dL Urine Ketones (NEGATIVE) mg/dL Urine Occult Blood (NEGATIVE) Urine Nitrite (NEGATIVE) Urine Bilirubin (NEGATIVE) Urine Urobilinogen (NORMAL) E.U./dL Ur Leukocyte Esterase (NEGATIVE) Urine RBC (0-5) /HPF Urine WBC (0-3) /HPF Ur Squamous Epith Cells (<= Few) Urine Bacteria (None Seen) /HPF Urine Casts /LPF Ur Microscopic Review Urine Culture Comments Nasal Screen MRSA (PCR) (NEGATIVE) - Diagnostic Imaging Diagnostic Imaging Results: positive: Final report reviewed Assessment/Plan - Problem List (1) Respiratory arrest Impression: Conclusion/Plan: Patient was found unconscious at home yesterday, foaming at the mouth by family member. EMS was called and patient was resuscitated and intubated in the field for an O2 saturation in the 40s and bradycardic where 1mg of epi was given with optimal response. Patient was noted by family that he has been feeling ill with flu-like symptoms since July 31. He is Covid positive and was placed in the ICU yesterday for acute respiratory failure management. Arterial and central line placed yesterday. (2) Acute respiratory failure Conclusion/Plan: His respiratory failure is secondary to Covid and asthma. Patient's vent setting this morning was assist control, FIO2 100%, PEEP of 14, tidal volume 500 (based on 8kg/cc). His peak pressure this morning on this vent setting was in the upper 30s to low 40s. With turns and stimulation, his peak pressure would increase to the 50s and will desaturate to the 80s%. PaO2 was 93. Tidal volume was decreased to 425 (6kg/cc). Repeat ABG 4.23/48/143/19.9/98 with peak pressures down to low 20s. This patient has a mix respiratory and metabolic acidosis. Plan: Increase his RR from 24 to 28 and repeat an ABG. Will start him on sedation as the plan is to prone him today. (3) COVID-19 Conclusion/Plan: Based on the most recent COVID-19 pharmacologic recommendations by the CDC, he was started on dexamethasone yesterday. Due to hypercoagulable state from COVID- 19, patient would benefit from anticoagulation. Plan: Continue dexamethasone and start enoxaparin subQ today. If kidney function improves, will start heparin drip tomorrow. (4) Pneumonia due to COVID-19 virus Conclusion/Plan: Based on the most recent COVID-19 pharmacologic recommendations by the CDC, he was started on dexamethasone. He was also started on azithromycin and ceftriaxone for pneumonia. Plan: Continue azithromycin and ceftriaxone today. Will plan on getting chest CT when he is more stable. (5) Acute kidney injury Conclusion/Plan: Patient's BUN and creatinine continues to climb. His creatinine is now 4.2 from 3.5. He is still making urine and currently has no indication for dialysis. Plan: Continue IV maintenance fluid and repeat BMP to trend creatinine. Avoid hypotension and nephrotoxins. (6) Acute hepatic failure Conclusion/Plan: Elevated liver enzymes may likely be due to shock state. His liver enzymes peak ed yesterday and is lower this morning on draw. Plan: Acute hepatitis panel and continue to trend LFTs. (7) Asthma Conclusion/Plan: Continue dexamethasone and scheduled albuterol nebulizer. Albuterol nebulizer treatment as needed. (8) Morbid obesity Conclusion/Plan: His BMI is 39.5--a risk factor for COVID-19. Plan: Will consult nutrition and start tube feed tomorrow. (9) Hyperkalemia Conclusion/Plan: Potassium this morning is down from 5.2 to 4.7. Plan: Will continue to trend BMP and to give insulin if needed. (9) Garcia Agitation Sedation Scale (RASS) score minurs 5, unarousable Conclusion/Plan: He is currently not on any sedation, but has yet to respond to commands or move. Corneals reflex, gag and cough reflex intact. Head CT unable to be done due to hemodynamic and patient instability. He was found unresponsive for an unknown period of time. He may have some degree of anoxic brain injury. Stroke cannot be ruled out without a head CT. Plan: Will get a head CT when patient is hemodynamically stable.
[2020-08-13] MEDS: CHLORHEXIDINE GLUCONATE 15 ML UDC PO SCH ×2 (10:12→21:19)
[2020-08-13] MEDS: SODIUM CHLORIDE FLUSH 0.9% 10 ML SYRINGE IVP PRN (10:16)
[2020-08-13] MEDS: MINERAL OIL/PETROLAT OPHTH OINT EACHEYE PRN ×2 (10:17→21:22)
[2020-08-13] MEDS: diltiaZEM INJ 5 MG/ML VIAL IVP SCH ×3 (10:49→21:20)
[2020-08-13] MEDS ORDERED: ENOXAPARIN 120 MG/0.8 ML SYRINGE SUBQ ONE (10:53)
[2020-08-13] MEDS: PANTOPRAZOLE 40 MG VIAL IVP SCH (11:01)
[2020-08-13] MEDS ORDERED: ALBUTEROL 1 PUFF INH PRN (11:38)
[2020-08-13 11:45] LABS: ABG BASE EXCESS -7.7 mmol/L (-2.0-3.0); ABG HCO3 19.9 mmol/L (22.0-26.0); ABG PCO2 48 mmHg (34-45); ABG PH 7.23 (7.35-7.45); ABG PO2 143 mmHg (80-100); ABG TCO2 21.4 MMOL/L (21.0-29.0)
[2020-08-13 11:46] LABS: ABG OXYGEN SATURATION 98 % (94-98); ALLEN TEST POSITIVE
[2020-08-13] MEDS: INSULIN REGULAR HUMAN 300 UNIT/3 ML VIAL SUBQ SCH ×3 (11:54→23:58)
[2020-08-13 12:07] LABS: CALCIUM 7.1 mg/dL (8.5-10.3); CREATININE 5.3 mg/dL (0.6-1.2)
[2020-08-13 13:32] LABS: ABG HCO3 21.3 mmol/L (22.0-26.0); ABG PCO2 51 mmHg (34-45); ABG PH 7.24 (7.35-7.45); ABG PO2 98 mmHg (80-100)
[2020-08-13 13:33] LABS: ABG BASE EXCESS -6.4 mmol/L (-2.0-3.0); ABG OXYGEN SATURATION 96 % (94-98); ABG TCO2 22.8 MMOL/L (21.0-29.0)
--- NOTE | 2020-08-13 14:26 | PHARMACY PROGRESS NOTE ---
- Best Possible Medication History Admit Date and Time: 08/12/20 1534 Processed by: Pharmacy Medication History completed: Yes Patient Interview: Pt unable to participate Secondary Source(s): Pharmacy records As the person ultimately responsible for medication therapy, providers are able to order a medication from an existing home medication list in [facility] via the "Reconcile Routine" prior to Confirmation of that medication by customer support technician. Such practice is discouraged except when the physician, in their clinical judgment, deems that a medical need exists for a medication without regard to previous use.
[2020-08-13] MEDS: ROCURONIUM 500 MG in SODIUM CHLORIDE 0.9% 100ML 50 ML IV SCH ×2 (14:53→21:37)
[2020-08-13] MEDS: fentaNYL 2,500 MCG in SODIUM CHLORIDE 0.9% 200 ML IV SCH ×2 (14:53→19:56)
[2020-08-13 16:06] LABS: ABG BASE EXCESS -5.3 mmol/L (-2.0-3.0); ABG HCO3 19.7 mmol/L (22.0-26.0); ABG OXYGEN SATURATION 98 % (94-98); ABG PCO2 37 mmHg (34-45); ABG PH 7.35 (7.35-7.45); ABG PO2 146 mmHg (80-100); ABG TCO2 20.9 MMOL/L (21.0-29.0); ALLEN TEST POSITIVE
--- NOTE | 2020-08-13 17:35 | Ultrasound Report ---
PROCEDURE: Abdomen Complete INDICATIONS: new renal failure TECHNIQUE: Real-time scanning was performed of the abdominal and retroperitoneal organs, with image documentatio n. COMPARISON: None. FINDINGS: Exam is limited by patient positioning, body habitus, and acoustic windows. Liver: Liver is normal in size. Increased in echogenicity. Gallbladder: Gallbladder is nondistended. Phrygian cap. No stones or sludge. Bladder wall appears mil dly thickened measuring 4 mm. No pericholecystic fluid. Negative sonographic Barton sign. Biliary ducts: Intrahepatic bile ducts are non-dilated. Extrahepatic bile duct caliber measures 7 m m. Normal is 6-7 mm or less in diameter, or 10 mm or less post-cholecystectomy. Pancreas: Not clearly seen. Spleen: Spleen is normal in size and homogeneous in echotexture. Kidneys: Left kidney is not well seen. Kidneys are normal in size. Right kidney measures 13.2 cm lo ng; left kidney measures 12.9 cm long. No hydronephrosis or nephrolithiasis. No solid masses. Aorta: Visualized aorta is normal in caliber at less than 3 cm. Iliacs: Not visualized. IVC: Intrahepatic inferior vena cava is patent. IMPRESSION: Exam is limited by acoustic windows, body habitus, and positioning. 1. No hydronephrosis. 2. Apparent mild thickening of the gallbladder wall. However the gallbladder is nondistended and ther e is no gallstones seen. 3. Increased echogenicity of the hepatic parenchyma. This is most commonly seen in hepatic steatosis. Other forms of hepatocellular disease could have a similar appearance. Reviewed by: Raza Rmairez MD on 08/13/2020 4:34 PM [facility] Approved by: Raza Ramirez MD on 08/13/2020 4:34 PM [place] Station ID: [id number]
--- NOTE | 2020-08-13 17:37 | Ultrasound Report ---
PROCEDURE: Bladder INDICATIONS: renal failure TECHNIQUE: Targeted exam of the urinary bladder. COMPARISON: Same day abdominal ultrasound. FINDINGS: Urinary bladder is decompressed with Barker catheter. Evaluation is limited. No obvious free fluid. IMPRESSION: Decompressed urinary bladder with Barker catheter. Reviewed by: Raza Ramirez MD on 08/13/2020 4:35 PM [facility] Approved by: Raza Ramirez MD on 08/13/2020 4:35 PM [facility] Station ID: [id number]
[2020-08-13] MEDS ORDERED: INSULIN GLARGINE 300 UNIT/3 ML PEN SUBQ SCH (21:00)
[2020-08-14] MEDS: SODIUM CHLORIDE FLUSH 0.9% 10 ML SYRINGE IVP SCH ×2 (00:02→08:41)
[2020-08-14] MEDS: diltiaZEM INJ 5 MG/ML VIAL IVP SCH ×2 (03:22→08:40)
[2020-08-14 05:38] LABS: BASOPHILS % (AUTO) 0.2 %; HGB - HEMOGLOBIN 12.9 g/dL (14.0-18.0); LYMPHOCYTES % (AUTO) 3.7 %; MEAN CORPUSCULAR HEMOGLOBIN 29.6 pg (27.0-31.0); MEAN CORPUSCULAR HGB CONC 31.9 g/dL (32.0-36.0); MEAN CORPUSCULAR VOLUME 92.7 fL (80.0-94.0); MEAN PLATELET VOLUME 11.3 fL (7.4-11.4); MONOCYTES % (AUTO) 4.3 %; NEUTROPHILS % (AUTO) 88.8 %; PLT - PLATELET COUNT 244 10^3/uL (130-450); RED BLOOD COUNT 4.36 10^6/uL (4.70-6.10); RED CELL DISTRIBUTION WIDTH 14.4 % (12.0-15.0); WHITE BLOOD COUNT 17.4 x10^3/uL (4.8-10.8)
[2020-08-14 05:42] LABS: ABG PCO2 47 mmHg (34-45); ABG PH 7.27 (7.35-7.45); ABG PO2 121 mmHg (80-100); ABG TCO2 22.5 MMOL/L (21.0-29.0)
[2020-08-14 05:44] LABS: ABNORMAL LYMPHS % (MANUAL) 0 %
[2020-08-14 05:50] LABS: ABG OXYGEN SATURATION 98 % (94-98)
[2020-08-14 05:56] LABS: ALBUMIN 2.6 g/dL (3.2-5.5); ALBUMIN/GLOBULIN RATIO 0.7 (1.0-2.2); BILIRUBIN,TOTAL 0.5 mg/dL (0.2-1.0); CALCIUM 7.2 mg/dL (8.5-10.3); CREATININE 6.5 mg/dL (0.6-1.2); MAGNESIUM 3.2 mg/dL (1.7-2.8); PHOSPHORUS 6.3 mg/dL (2.5-4.6); TOTAL PROTEIN 6.2 g/dL (6.7-8.2)
[2020-08-14] MEDS ORDERED: INSULIN REGULAR HUMAN 300 UNIT/3 ML VIAL SUBQ SCH (06:00)
[2020-08-14 06:13] LABS: BAND NEUTROPHILS % (MANUAL) 7 %; DIFFERENTIAL COMMENT MANUAL DIFFERENTIAL; LYMPHOCYTES # (MANUAL) 0.3 10^3/uL (1.5-3.5); LYMPHOCYTES % (MANUAL) 2 %; MONOCYTES # (MANUAL) 0.7 10^3/uL (0.0-1.0); PLATELET ESTIMATE, MANUAL NORMAL (130-450,000) (NORMAL); PLATELET MORPHOLOGY NORMAL APPEARANCE (NORMAL); RBC MORPHOLOGY (MULTIPLE) NORMAL APPEARANCE (NORMAL)
[2020-08-14] MEDS: INSULIN REGULAR HUMAN 300 UNIT/3 ML VIAL SUBQ SCH (06:22)
[2020-08-14] MEDS: PANTOPRAZOLE 40 MG VIAL IVP SCH (06:22)
[2020-08-14] MEDS: SODIUM CHLORIDE FLUSH 0.9% 10 ML SYRINGE IVP PRN (06:33)
[2020-08-14] MEDS ORDERED: INSULIN REGULAR HUMAN 300 UNIT/3 ML VIAL IVP ONE (07:01)
[2020-08-14] MEDS: LACTATED RINGERS 1,000 ML IV SCH (08:30)
[2020-08-14] MEDS: AZITHROMYCIN INJ 500 MG in SODIUM CHLORIDE 0.9% 250 ML IV SCH (08:39)
[2020-08-14] MEDS: DEXAMETHASONE 4 MG/ML VIAL IVP SCH (08:39)
--- NOTE | 2020-08-14 09:11 | DISCHARGE SUMMARY ---
Discharge Summary Admit Date: 08/12/20 Discharge Date: 08/14/20 Discharging Provider: Roula Woodard MD Primary Care Provider: none Code Status: Attempt Resuscitation Condition at Discharge: Critical Discharge Disposition: 02 Transfer Acute Care Hosp - DIAGNOSES Discharge Diagnoses with Status of Each Condition: 1. Status post respiratory arrest 2. Acute respiratory failure with hypoxemia 3. Pneumonia due to COVID-19 virus 4. Acute kidney failure 5. Acute hepatic failure 6. History of asthma 7. Morbid obesity 8. Hyperkalemia - HPI History of Present Illness: He is a 55-year-old obese white male who is been unemployed because of the Covid epidemic. He is an client service executive at [employer] and was looking forward to starting work in [place] soon. He has been staying at home. His stepson describes him as being careful. He started feeling ill July 31. As far as his stepson knows, no one around him is sick. The patient has progressed from flulike illness of fever, myalgias, sore throat, runny nose to lethargy, cough, shortness of breath. On August 04 he went out to go buy a freezer and some tools. He was coughing, having hot flashes and cold flashes. And feeling miserable. On Friday the his and stepson went to go get tested since they were starting to feel flulike illnesses and they were Covid positive. By August 08 the patient stated he was "feeling better". Up till then, his family had been urging him to please see a doctor. To go to the urgent care center or the emergency room but the patient did not want to go. He felt like he was on the mend. But he continued to be lethargic, sleepy. Did not have much energy. By Friday the he really did not have an appetite and was not eating very much. He was sleeping a lot. He was so miserable last night that he just went to bed early. This morning, the family said that he was still sleeping. He had been having such a rough week of it that they left him alone in bed. This afternoon, they went to go check on him because he still has not gotten out of bed and they noticed that he was having white froth come out of his mouth. He was also unresponsive. No matter how much they shook his shoulder or tried to pull on his arms, he was not responding to them so they called EMS. EMS reports unresponsive man, sats in 40s, almost asystole in that pulse was intermittent on leads but responded immediately to oxygen, epinephrine and intubation. BP came up to 200s at first. O2 sats improved to high 80s. He received vec with EMS. Initially he was hypertensive in the emergency room and is now hypotensive on the ventilator with a PEEP of 14. Ketamine given. His initial blood gas shows a pH of 7.18, PCO2 60, PO2 38. Bicarb 21.6. Base excess -7.5. This is on the ventilator with a rate of 24, assist control, 100% FiO2 with a tidal volume of 500 and a PEEP of 5. White cell count is 11,000. Hemoglobin 13.9. I am now placing the patient in the ICU. History is obtained from his stepson Cristopher ([phone]). His fiance does not speak [place]. She does not have designated power of [place] attorney. He has 3 children from his first marriage and one lives in [facility]. Meggan is his daughter in [place] ([phone]). Son is Dariusz ([phone]). Dariusz has agreed to be the point of contact for his family to disseminate information to them. He is also to be the designated power of [place] attorney for the family. History - Past Medical History Cardiovascular: reports: None Respiratory: reports: Asthma (As far his status son Dariusz notes, the patient does not have a primary care provider. Cristopher also states that he does not remember his stepfather seen a doctor.) Neuro: reports: None Endocrine/Autoimmune: reports: None GI: reports: None : reports: None HEENT: reports: None Psych: reports: None Musculoskeletal: reports: Chronic back pain (Previous history of back surgery) Derm: reports: None Other Past Medical History: unknown - Past Surgical History Other past surgical history: unknown - CONSULTS | PROCEDURES Procedures: 1. 3 chest x-rays. There is extensive patchy airspace opacity bilateral that are in keeping with COVID-19 infection. After central line placement, there is no pneumothorax. 2. Abdominal ultrasound done for renal failure shows no hydronephrosis, mild thickening of the gallbladder wall, increased echogenicity of the hepatic parenchyma. Commonly seen in hepatic steatosis. 3. Bladder ultrasound showing a urinary bladder that is decompressed with a Barker. No other findings. 4. Blood cultures negative after 1 day 5. Respiratory culture preliminary shows gram-positive cocci. - HOSPITAL COURSE Hospital Course: The patient was placed in the ICU and most likely developed auto PEEP secondary to his history of asthma and intubation. His initial systolic pressure of 200 dropped to the 80s systolic. Levophed was temporarily started as well as aggressive fluid resuscitation with IV bolus. He was started on empiric antibiotic therapy. He is not a candidate for remdesivir since he does not meet criteria that we use developed by the [facility]. Namely that he was intubated and has been sick for a while. He was given dexamethasone. We did discuss with the emergency room whether this patient needed to be cooled. He was not quite asystolic nor did he have A. fib or V. tach. After discussion, the emergency room provider felt that cooling was not indicated in this gentleman. Ventilatory status was eventually stabilized and an FiO2 of 100% is now gradually being decreased today. Liver failure that was present on admission with AST and ALTs that peaked in the 4000s is now 2000s today. However, his kidney failure continues to be present. His creatinine has gone from 2.5 and is up to 6.5. BUN is 97. Potassium is also climbed to 5.4. He has hyperglycemia with the steroids and we have started Lantus and short acting insulin. At this time he is on assist control, rate of 28, FiO2 80%. Tidal volume 420. PEEP of 14. This morning's blood gas has a pH of 7.27, PCO2 47, PO2 121.Since admission, he has not had any meaningful neurologic response. This is even before he was paralyzed with rocuronium. We used the rocuronium to maximize our ventilatory efforts. His pupils have been minimally responsive, and no response on physical exam to sternal rub or painful stimulation. Restraints were used in the upper extremity for an abundance of caution to make sure that if he did suddenly wake up he did not rip out all his lines or tubes. We did put in a central line and art line. Because of his renal failure, we have asked transfer to a higher level of care. We are anticipating he may need dialysis and we cannot do that at this facility. I have spoken to Dr. Smith at [facility]. He has graciously a ccepted this patient. I have notified the patient's son Dariusz @ [phone]. He is the oldest of 3 children. His sisters are Meggan and Gina. He is the designated POA and the point of contact for the family. We have been keeping him updated on a daily basis. As a matter of courtesy, we are also calling his fiance through her son. His fiance son is named Cristopher and that number is [phone]. She does not speak [place]. Her son translates for us to her. At transfer, the patient is 37.3. Pulse is 89. Blood pressure 124/93. Vent settings are with respiration at 28 and he is breathing at 28. He is on rocuronium. FiO2 is 70% with 100% saturation. He is 5 foot 8 inches tall and weighs 127 kg. Thick neck. Difficult to assess for JVD. Diffuse coarse rhonchi. Diminished breath sounds at the bases. Regular rate and rhythm. Abdomen is obese, soft, hypoactive bowel sounds. No tenseness, and cannot be assessed for rebound or guarding due to his sedation and paralysis. Scrotum is mildly edematous. Barker in place. Legs do not have edema. Foot pulses are difficult to get. - MEDICATIONS Home Medications: Ambulatory Orders Medication Instructions Recorded Confirmed No Known Home Medications 08/13/20 08/13/20 - LABS Result Diagrams: 08/14/20 05:15 08/14/20 05:15
--- NOTE | 2020-08-14 09:30 | XRAY Report ---
PROCEDURE: Chest 1 View X-Ray INDICATIONS: FU PNEUMONIA, INTUBATED TECHNIQUE: One view of the chest was acquired. COMPARISON: 08/13/2020, 08/12/2020 FINDINGS: Surgical changes and devices: ET tube and NG tube are stable. Central venous line projects the distal SVC via right IJ approach.. Lungs and pleura: No pleural effusions or pneumothorax. Diffuse, bilateral lung opacities not signif icantly changed. Mediastinum: Mediastinal contours appear normal. Heart size is normal. Bones and chest wall: No suspicious bony lesions. Overlying soft tissues appear unremarkable. IMPRESSION: 1. Central venous catheter projects the distal SVC via right IJ approach. 2. Stable bilateral lung multilobar pneumonia. Reviewed by: Nataliya Hung MD, PhD on 08/14/2020 9:29 AM PST Approved by: Nataliya Hung MD, PhD on 08/14/2020 9:29 AM PST Station ID: [id number]
[2020-08-14] MEDS: cefTRIAXone 2 GM in SODIUM CHLORIDE 0.9% MINIBAG 100 ML IV SCH (09:39)
[2020-08-14] MEDS: CHLORHEXIDINE GLUCONATE 15 ML UDC PO SCH (09:40)
[2020-08-14 10:43] VITALS: BP 124/93
[2020-08-14] MEDS: fentaNYL 2,500 MCG in SODIUM CHLORIDE 0.9% 200 ML IV SCH (10:50)
--- NOTE | 2020-08-14 10:54 | Discharge Plan ---
Discharge Plan Problem Reviewed?: Yes Disposition: 02 Transfer Acute Care Hosp Condition: Critical No Smoking: If you smoke, Please STOP! Call for help.
[2020-08-14 11:08] LABS: C. PNEUMONIAE- RESP PCR PANEL NOT DETECTED
[2020-08-15 12:28] LABS: HEPATITIS A IGM NON-REACTIVE (NON-REACTIVE); HEPATITIS B SURFACE ANTIGEN NON-REACTIVE (NON-REACTIVE); HEPATITIS C ANTIBODY NON-REACTIVE (NON-REACTIVE)
== END 2020-08-14 11:05 | disposition short-term general hospital (02) | DRG 177 ==
LOC: EDBD 14:46 → ED 14:46 → ICU 15:34
PROVIDERS: ADMIT Specialist; ATTEND Specialist
PROC: 05HM33Z Insertion of Infusion Device into Right Internal Jugular Vein, Percutaneous Approach (ICD-10-PCS; principal; 2020-08-12)
DX: U07.1 COVID-19 (principal); J96.01 Acute respiratory failure with hypoxia; J12.89 Other viral pneumonia; K72.00 Acute and subacute hepatic failure without coma; N17.9 Acute kidney failure, unspecified; E87.4 Mixed disorder of acid-base balance; E66.01 Morbid (severe) obesity due to excess calories; E87.5 Hyperkalemia; R73.9 Hyperglycemia, unspecified; J45.909 Unspecified asthma, uncomplicated; Z68.39 Body mass index [BMI] 39.0-39.9, adult; N50.89 Other specified disorders of the male genital organs; Z78.1 Physical restraint status; I95.9 Hypotension, unspecified
CPT/HCPCS: 0202U; 36415; 36600; 51702; 71045; 76700; 76857; 80048; 80053; 80074; 80076; 81001; 82803; 83735; 83880; 84100; 84300; 85025; 85379; 85610; 87040; 87070; 87150; 87205; 93005; 93306; 94002; 94003; 94640; 99285; 99291; A9270; J0131; J1650; J1815; J3010; J7120; 81003; 87086; 94770

== ENCOUNTER 2020-08-14 11:09 | Outpatient (CLI) | payer SELFPAY | END 2020-08-14 11:10 | disposition short-term general hospital (02) | LOC: EMS 11:09 | PROVIDERS: ATTEND Surgery | DX: U07.1 COVID-19 (principal); N19 Unspecified kidney failure; J96.90 Respiratory failure, unspecified, unspecified whether with hypoxia or hypercapnia | CPT/HCPCS: A0425; A0428 ==